=== PATIENT | female | born 1980 | race Caucasian/White ===

== ENCOUNTER 2016-11-04 06:48 | Day surgery (SDC) | payer MEDICAID ==
[2016-11-01 07:59] VITALS: BMI 44.9
--- NOTE | 2016-11-04 08:58 | CP.SDSHP ---
Same Day Surgery H & P - History Proposed Procedure: Right neck mass biopsy Pre-Op Diagnosis: Right neck enlarged lymph node. - Allergies Allergies: Allergies No Known Allergies Allergy (Verified 11/01/16 07:38) - Physical Exam General Appearance: NAD Vital Signs: Vital Signs 11/04/16 07:09 Temperature 97.4 F L Pulse Rate 96 H Respiratory 18 Rate Blood Pressure 122/82 O2 Sat by Pulse 100 Oximetry Mental Status: Alert & Oriented x3 Heart: WNL Lungs: WNL - Impression Pt. Evaluated Today:Candidate for Anesthesia & Procedure: Yes Short Stay Discharge - Short Stay Discharge Admitting Diagnosis/Reason for Visit: THYROID NODULE Disposition: HOME/ ROUTINE
--- NOTE | 2016-11-04 09:00 | PCM.SURG1 ---
Surgeon's Initial Post Op Note - Surgeon's Notes Surgeon: [employer] Draftsperson: None Type of Anesthesia: Local Pre-Operative Diagnosis: Right neck mass Operative Findings: Right neck mildly enlarged lymph nodes. Post-Operative Diagnosis: Right neck mildly enlarged lymph nodes. Operation Performed: Right neck mass FNA Specimen/Specimens Removed: FNA samples obtained. Estimated Blood Loss: EBL {In ML}: 1 Date of Surgery/Procedure: 11/04/16 Time of Surgery/Procedure: 08:30
[2016-11-04 09:25] VITALS: BP 123/81; PULSE 82; RESP 20; TEMP 98.6; O2SAT 99
--- NOTE | 2016-11-04 17:21 | US ---
Neck lymph node biopsy History: Palpable mass in the right upper neck region. Comparison: Comparison is made to CT from 10/07/2016. Procedure and findings: Informed consent was obtained from the patient. The patient was positioned supine and initial ultrasonography images were obtained. These images demonstrated moderately enlarged lymph nodes in the right neck region. Permanent images were stored. The right neck region was prepped and draped in the usual sterile techniques. Using a 25 gauge needle, fine needle aspiration biopsies were obtained from a superficial moderately enlarged lymph node in the right neck in the submandibular region. Ultrasound images were stored. Post biopsy images demonstrated no evidence of hematoma. The patient tolerated the procedure well without any adverse events. Impression: Fine-needle aspiration biopsy of moderately enlarged lymph node in the right neck.
== END 2016-11-04 09:17 | disposition home or self-care (01) ==
LOC: C.SPRAD 06:48
PROVIDERS: ATTEND Radiology Vascular & Interventional Radiology
DX: R59.0 Localized enlarged lymph nodes (principal)